=== PATIENT | male | born 1950 | race Caucasian/White ===

== ENCOUNTER 2018-07-17 10:13 | Emergency (ER) | payer SELFPAY ==
[2018-07-17] MEDS ORDERED: SALINE FLUSH IVP ONE (10:16)
[2018-07-17] MEDS ORDERED: PANTOPRAZOLE SODIUM IVP ONE (10:16)
[2018-07-17 10:25] LABS: MONOCYTES % 4.3 % (0.0-11.0)
[2018-07-17 10:26] LABS: BASOPHILS % 0.4 % (0.0-1.5); NEUTROPHILS # 8.9 # k/uL (1.4-7.7)
--- NOTE | 2018-07-17 10:26 | ED Physician Documentation ---
General Adult - HISTORIAN Historian: patient - HPI Stated Complaint: Diarrhea Chief Complaint: General Adult Additional Information: Patient presents to ED with diarrhea since 429 this morning. He reports blood tinged, mucous in his diarrhea with associated blood tinged, mucous emesis x 1 today. Patient reports continual diarrhea (unable to get off toilet since 429). He states he is experiencing extreme weakness. Patient states he had similar symptoms symptoms 2 weeks ago which spontaneously resolved. He was seen [facility], given stool softners BID and has a colonscopy scheduled for August 09. He denies fever, abdominal pain, dark tarry stools. Patient drinks alcohol daily and smokes 2-3 packs per day. Onset: hours (6) Timing: still present Severity: moderate - ROS CONST: denies: fever EYES/ENT: none CVS/RESP: denies: chest pain, shortness of breath, cough GI/: vomiting. denies: abdominal pain MS/SKIN/LYMPH: none NEURO/PSYCH: denies: headache, fainting, dizziness - PAST HX Past History: COPD Other History: none Surgeries/Procedures: none Allergies/Adverse Reactions: Allergies Allergy/AdvReac Type Severity Reaction Status Date / Time varenicline [From Chantix] Allergy Verified 07/17/18 10:19 Home Medications: Ambulatory Orders Medication Instructions Recorded Ciprofloxacin HCl [Cipro] 500 mg PO BID #28 tablet 07/17/18 Nortriptyline HCl [Pamelor] 1 cap PO DAILY 07/17/18 metroNIDAZOLE [Flagyl] 500 mg PO Q8 #42 tablet 07/17/18 - SOCIAL HX Smoking History: cigarettes, greater than 1 pack/day Alcohol Use: heavy Drug Use: none - FAMILY HX Family History: No - VITAL SIGNS Vital Signs: Vital Signs Temp Pulse Resp BP Pulse Ox 97.6 F 100 H 19 147/98 99 07/17/18 10:13 07/17/18 10:13 07/17/18 10:13 07/17/18 10:13 07/17/18 10:13 - REVIEWED ASSESSMENTS Nursing Assessment Reviewed: Yes Vitals Reviewed: Yes ED Results Lab/Radiology - Orders Orders: ED Orders Category Date Time Status Place IV Lock 1T Care 07/17/18 10:16 Ordered CBC/PLATELET/DIFF Routine Lab 07/17/18 Ordered CMP Routine Lab 07/17/18 Ordered Pantoprazole Sodium [Protonix] 80 mg Med 07/17/18 10:16 Ordered Saline Flush [Normal Saline Flush] 20 ml IVP NOW General Adult Physical Exam - PHYSICAL EXAM GENERAL APPEARANCE: no distress EENT: ENT inspection normal NECK: supple. No: lymphadenopathy RESPIRATORY: no resp distress, chest non-tender, breath sounds normal CVS: reg rate & rhythm, heart sounds normal ABDOMEN: soft, increased BS. No: tenderness BACK: normal inspection, no CVA tenderness SKIN: warm/dry, normal color EXTREMITIES: non-tender, no edema NEURO: oriented X3, motor nml, mood/affect nml Discharge Clincal Impression: Diverticulitis Prescriptions: Ciprofloxacin HCl [Cipro] 500 mg PO BID #28 tablet metroNIDAZOLE [Flagyl] 500 mg PO Q8 #42 tablet Referrals: Primary Doctor,No [Primary Care Provider] - 2 Days Additional Instructions: 1. Take antibiotics until gone 2. Use over the counter Imodium as needed for diarrhea 3. Drink plenty of fluids to maintain proper hydration. Avoid caffeine and alcohol 4. Follow up with PCP within 1 week 5. [facility] 6. Return to ER for new or worsening symptoms Condition: Stable Disposition: 01 HOME, SELF-CARE Decision to Admit: NO Date of Decison to Admit: 07/17/18 Decision Time: 12:09
[2018-07-17 10:34] LABS: eGFR (Non-African) > 60
[2018-07-17] MEDS ORDERED: 0.9 % SODIUM CHLORIDE 1,000 ML IV ONE (10:46)
[2018-07-17] MEDS ORDERED: ONDANSETRON HCL/PF 4 MG/ 2ML VIAL IVP ONE (10:46)
[2018-07-17] MEDS ORDERED: DIPHENOXYLATE /ATROPINE 2.5MG-0.025MG TABLET PO ONE (11:31)
[2018-07-17 12:20] VITALS: BP 145/91
--- NOTE | 2018-07-17 18:23 | Diagnostic Imaging Report ---
CHRISTIANNE SORENSON [facility] [id number] [facility] [address] [place], [place]. [address] Report Submission Date: July 17, 2018 11:57:06 AM CDT Patient Study Name: RIK CHAUDHARY Date: July 17, 2018 11:10:36 AM CDT Modality Type: CT\SR Gender: M Description: CT ABD PELVIS W/ CON : 48 Institution: [facility] Physician: CHRISTIANNE SORENSON Examination: CT Abdomen/pelvis History: BLOODY DIARHHEA X2 WEEKS, PT STATES N/V WITH THE DIARHHEA THE LAST FEW DAYS Comparison exams: None available Technique: CT Abdomen/pelvis without IV protocol. Findings: Liver demonstrates mild diffuse low attenuation. Spleen, adrenals, pancreas, kidneys and gallbladder are without gross irregularity given exam technique. No gallstone. No suspicious renal calcifications. Ureters are nondilated in their course through the abdomen and pelvis. No central calcifications. Bladder margin within normal limits. Abdominal aorta without aneurysm. Peripheral atherosclerotic disease. Cardiac silhouette is not enlarged. No pericardial effusion. Scattered loops of prominent small bowel with air-fluid levels. Stool within the large bowel limiting sensitivity. Thickening of the colon/sigmoid colon mucosa with scattered diverticula. No free fluid. Appendix not visualized. Osseous structures appropriate for age. Lung bases without infiltrate. No effusion. Impression: Thickening of the colon/sigmoid colon mucosa associated scattered diverticula - colitis/diverticulitis. Scattered prominent loops of small bowel associated with air-fluid levels - generalized gastroenteritis. No obstruction. No acute upper abdominal organ inflammatory process. No gallstone. Mildly fatty liver. No suspicious renal calcifications or abnormal ureteric dilation. No lung base consolidation or effusion. Electronically signed on July 17, 2018 11:57:06 AM CDT by: Danie SPARKS
== END 2018-07-17 12:16 | disposition home or self-care (01) ==
LOC: ED 10:13
DX: K57.92 Diverticulitis of intestine, part unspecified, without perforation or abscess without bleeding (principal); Z72.0 Tobacco use
CPT/HCPCS: 36415; 74177; 80053; 85025; 96374; 96375; 99283; 99284; J2405; J7030; Q9967

== ENCOUNTER 2018-11-18 15:12 | Emergency (ER) | payer OTHER ==
[2018-11-18] MEDS ORDERED: ASPIRIN 81 MG CHEW TAB ONE (15:17)
[2018-11-18] MEDS ORDERED: NITROGLYCERIN 0.4 MG TAB.SUBL SL ONE ×2 (15:20→15:22)
[2018-11-18] MEDS ORDERED: 0.9 % SODIUM CHLORIDE 1,000 ML IV ONE ×2 (15:21→15:22)
[2018-11-18] MEDS ORDERED: ASPIRIN 81 MG CHEW TAB PO ONE (15:22)
--- NOTE | 2018-11-18 15:26 | ED Physician Documentation ---
Chest Pain - HISTORIAN Historian: patient - HPI Stated Complaint: chest pain Chief Complaint: Chest Pain Onset: minutes (30) Timing: sudden onset Duration: constant Last known Well Date: 11/18/18 Last Known Well Time: 14:50 Context: rest Severity: severe (11/12) Quality: pressure, tightness Chest Pain Radiation: no radiation Chest Pain Signs/Symptoms: diaphoresis, dyspnea. denies: nausea, vomiting Worsened By: nothing Relieved By: nothing Further Comments: yes (He is with his daughter started with chest pain 30 min prior no radiation and no OTC meds prior to arrival. He states he has had two stents. He is on meds and he is DM with control through diet) - ROS CONST: none - PAST HX GA risk factors: diabetes Type 2, hyperlipidemia DVT/PE Risk Factors: none TAD/AAA risk factors: none Neuro deficit: none GI disease: none Lung disease: none Surgeries/Procedures: cardiac stent Allergies/Adverse Reactions: Allergies Allergy/AdvReac Type Severity Reaction Status Date / Time varenicline [From Chantix] Allergy Verified 07/17/18 10:19 Home Medications: Ambulatory Orders Medication Instructions Recorded Ciprofloxacin HCl [Cipro] 500 mg PO BID #28 tablet 07/17/18 Nortriptyline HCl [Pamelor] 1 cap PO DAILY 07/17/18 metroNIDAZOLE [Flagyl] 500 mg PO Q8 #42 tablet 07/17/18 - SOCIAL HX Smoking History: cigarettes Alcohol Use: none Drug Use: none - FAMILY HX Family HX: none - VITAL SIGNS Vital Signs: Vital Signs Temp Pulse Resp BP Pulse Ox 145/91 07/17/18 12:19 - REVIEWED ASSESSMENTS Nursing Assessment Reviewed: Yes Vitals Reviewed: Yes ED Results Lab/Radiology - Orders Orders: ED Orders Category Date Time Status 0.9 % Sodium Chloride [Normal Saline] 1,000 ml Med 11/18/18 15:21 Discontinued IV .STK-MED 0.9 % Sodium Chloride [Normal Saline] 1,000 ml Med 11/18/18 15:22 Ordered IV NOW Aspirin [Miguel] Med 11/18/18 15:17 Discontinued 324 mg .ROUTE .STK-MED ONE Aspirin [Miguel] Med 11/18/18 15:22 Once 324 mg PO NOW ONE Nitroglycerin [Nitroquick] Med 11/18/18 15:20 Discontinued 0.4 mg SL .STK-MED ONE Nitroglycerin [Nitroquick] Med 11/18/18 15:22 Once 0.4 mg SL NOW ONE EKG WITH COMPARISON Stat Ther 11/18/18 Ordered Chest Pain Physical Exam - EXAM General Appearance: alert, moderate distress EENT: eye inspection normal, no signs of dehydration Neck: nml inspection Respiratory: nml breath sounds CVS: reg. rate & rhythm Skin: warm/dry, diaphoresis, other (ashen) Extremities: non-tender, normal range of motion, no evidence of injury Neuro: oriented X3 Discharge Clincal Impression: STEMI (ST elevation myocardial infarction) Qualifiers: Involved coronary artery: unspecified coronary artery Qualified Code(s): I21.3 - ST elevation (STEMI) myocardial infarction of unspecified site Referrals: Primary Doctor,No [Primary Care Provider] - 2 Days Condition: Critical Disposition: 02 XFER SHT-TRM HOSP Decision to Admit: NO Date of Decison to Admit: 11/18/18 Decision Time: 15:29
[2018-11-18 15:35] LABS: BASOPHILS % 0.6 % (0.0-1.5); NEUTROPHILS # 6.7 # k/uL (1.4-7.7)
[2018-11-18 15:44] LABS: eGFR (Non-African) > 60
[2018-11-18 16:05] VITALS: BP 147/90
== END 2018-11-18 15:29 | disposition short-term general hospital (02) ==
LOC: ED 15:12
DX: I21.3 ST elevation (STEMI) myocardial infarction of unspecified site (principal)
CPT/HCPCS: 80053; 82553; 83880; 84484; 85025; 93005; 99281; J7030; S1016